=== PATIENT | male | born 1990 | race African-American/Black ===

== ENCOUNTER 2022-02-18 12:14 | Inpatient (IN) | payer SELFPAY ==
[2022-02-18] MEDS ORDERED: ACETAMINOPHEN 1000 MG/100 ML BAG IVPB ONE (12:34)
[2022-02-18] MEDS ORDERED: LACTATED RINGERS SOLUTION 1000 ML INFUS.BAG IV ONE (12:34)
[2022-02-18] MEDS ORDERED: PANTOPRAZOLE SODIUM 40 MG VIAL IVPUSH ONE (12:36)
[2022-02-18] MEDS ORDERED: PANTOPRAZOLE SODIUM 40 MG/100 ML BAG IVPB ONE (12:40)
[2022-02-18] MEDS ORDERED: PANTOPRAZOLE SODIUM 40 MG VIAL ONE ×2 (12:40→12:45)
[2022-02-18] MEDS ORDERED: ACETAMINOPHEN INJECTION 100 ML IVPB ONE ×2 (12:40→12:45)
[2022-02-18] MEDS ORDERED: ONDANSETRON 4 MG/2 ML VIAL IVPUSH ONE (12:42)
[2022-02-18] MEDS ORDERED: ONDANSETRON 4 MG/2 ML VIAL ONE (12:48)
[2022-02-18] MEDS ORDERED: LORazepam 2 MG/ML SDV VIAL IVPUSH ONE (13:02)
[2022-02-18 13:27] LABS: BASO % 0.8 % (0-2.0); EOS % 3.1 % (0-4.5); HEMATOCRIT 35.8 % (35.4-49); HEMOGLOBIN 11.5 GM/dL (11.7-16.9); LYMPH % 20.4 % (8-40); MCHC 32.1 g/dl (32.0-35.9); MEAN PLT VOLUME 8.8 fl (7.5-11.1); NEUT % 70.7 % (42.8-82.8); PLATELET COUNT 245 10^3/uL (134-434); RBC 4.78 M/mm3 (4.00-5.60); RDW 20.6 % (11.9-15.9); WHITE BLOOD COUNT 7.2 K/mm3 (4.0-10.0)
[2022-02-18 13:38] LABS: INR 1.11 (0.83-1.09); PROTHROMBIN TIME (PATIENT) 12.8 SEC (9.7-13.0)
[2022-02-18 13:41] LABS: ACTIVATED PTT 30.2 SECONDS (25.2-36.5)
[2022-02-18 13:51] LABS: BLOOD UREA NITROGEN 10.4 mg/dL (7-18); CALCIUM 9.1 mg/dL (8.5-10.1)
[2022-02-18 13:54] LABS: CREATININE 0.9 mg/dL (0.55-1.3)
[2022-02-18 13:56] LABS: BILIRUBIN,TOTAL 0.4 mg/dL (0.2-1); TOT PROT 7.9 g/dl (6.4-8.2)
[2022-02-18 14:45] LABS: ANISOCYTOSIS 3+; MACROCYTOSIS 0; TARGET CELLS 2+
[2022-02-18] MEDS ORDERED: morphine CARPU-JECT 2 MG/1 ML DISP.SYRIN IVPUSH ONE (15:12)
[2022-02-18] MEDS: PANTOPRAZOLE SODIUM 40 MG VIAL IVPUSH SCH (21:44)
[2022-02-18 22:39] VITALS: BMI 25.4
[2022-02-19] MEDS: morphine SULFATE 4 MG/ML VIAL IVPUSH PRN ×2 (01:18→21:30)
[2022-02-19 09:40] LABS: BASO % 0.7 % (0-2.0); EOS % 7.2 % (0-4.5); HEMATOCRIT 34.7 % (35.4-49); HEMOGLOBIN 11.2 GM/dL (11.7-16.9); LYMPH % 33.9 % (8-40); MCH 24.1 pg (25.7-33.7); MCHC 32.3 g/dl (32.0-35.9); MEAN CELL VOLUME 74.7 fl (80-96); MEAN PLT VOLUME 8.5 fl (7.5-11.1); MONO % 3.4 % (3.8-10.2); NEUT % 54.8 % (42.8-82.8); PLATELET COUNT 210 10^3/uL (134-434); RBC 4.65 M/mm3 (4.00-5.60); WHITE BLOOD COUNT 4.5 K/mm3 (4.0-10.0)
[2022-02-19 09:59] LABS: ALBUMIN 3.7 g/dl (3.4-5.0); BLOOD UREA NITROGEN 11.7 mg/dL (7-18); CALCIUM 8.8 mg/dL (8.5-10.1); MAGNESIUM 2.2 mg/dL (1.8-2.4)
[2022-02-19 10:00] LABS: IRON SERUM 108 ug/dL (50-175)
[2022-02-19 10:01] LABS: TOTAL IRON BINDING CAPACITY 403 ug/dL (250-450)
[2022-02-19 10:02] LABS: CREATININE 1.1 mg/dL (0.55-1.3); PHOSPHOROUS 3.1 mg/dL (2.5-4.9)
[2022-02-19 10:03] LABS: BILIRUBIN,TOTAL 0.9 mg/dL (0.2-1)
[2022-02-19 10:04] LABS: TOT PROT 7.2 g/dl (6.4-8.2)
[2022-02-19] MEDS: PANTOPRAZOLE SODIUM 40 MG VIAL IVPUSH SCH (10:15)
[2022-02-19] MEDS: ACETAMINOPHEN 1000 MG/100 ML BAG IVPB PRN (10:15)
[2022-02-19] MEDS ORDERED: PEG 3350/NA SULF BICARB CL/KCL 4000 ML SOLN.RECON PO ONE ×2 (14:00→20:00)
[2022-02-19] MEDS ORDERED: LORazepam 1 MG TABLET PO ONE (21:00)
[2022-02-20] MEDS: ACETAMINOPHEN 1000 MG/100 ML BAG IVPB PRN (01:01)
[2022-02-20] MEDS: PANTOPRAZOLE SODIUM 40 MG VIAL IVPUSH SCH (09:26)
[2022-02-20 11:00] LABS: BASO % 1.2 % (0-2.0); EOS % 9.5 % (0-4.5); HEMOGLOBIN 11.5 GM/dL (11.7-16.9); LYMPH % 34.5 % (8-40); MEAN CELL VOLUME 75.1 fl (80-96); MEAN PLT VOLUME 8.7 fl (7.5-11.1); MONO % 8.3 % (3.8-10.2); NEUT % 46.5 % (42.8-82.8); PLATELET COUNT 218 10^3/uL (134-434); RDW 21.1 % (11.9-15.9); WHITE BLOOD COUNT 3.8 K/mm3 (4.0-10.0)
[2022-02-20 11:07] LABS: INR 1.06 (0.83-1.09); PROTHROMBIN TIME (PATIENT) 12.2 SEC (9.7-13.0)
[2022-02-20 11:27] LABS: CALCIUM 9.4 mg/dL (8.5-10.1)
[2022-02-20 11:28] LABS: ALBUMIN 3.8 g/dl (3.4-5.0); BLOOD UREA NITROGEN 8.4 mg/dL (7-18); MAGNESIUM 2.4 mg/dL (1.8-2.4)
[2022-02-20 11:33] LABS: BILIRUBIN,TOTAL 0.9 mg/dL (0.2-1); TOT PROT 7.2 g/dl (6.4-8.2)
[2022-02-20] MEDS ORDERED: IRON SUCROSE INJECTION 200 MG in SODIUM CHLORIDE 90 ML IVPB ONE (16:00)
[2022-02-20] MEDS: morphine SULFATE 4 MG/ML VIAL IVPUSH PRN (16:48)
[2022-02-20] MEDS: OLANZapine 5 MG TABLET PO SCH (21:16)
[2022-02-20] MEDS: ACETAMINOPHEN 325 MG TABLET (FP) PO PRN (21:16)
[2022-02-21] MEDS: PANTOPRAZOLE SODIUM 40 MG VIAL IVPUSH SCH (09:41)
[2022-02-21 10:12] LABS: BASO % 0.7 % (0-2.0); EOS % 9.4 % (0-4.5); HEMOGLOBIN 11.5 GM/dL (11.7-16.9); LYMPH % 30.1 % (8-40); MEAN CELL VOLUME 75.1 fl (80-96); MONO % 6.5 % (3.8-10.2); NEUT % 53.3 % (42.8-82.8); PLATELET COUNT 224 10^3/uL (134-434); RDW 21.5 % (11.9-15.9); WHITE BLOOD COUNT 4.2 K/mm3 (4.0-10.0)
[2022-02-21 10:30] LABS: CALCIUM 8.7 mg/dL (8.5-10.1)
[2022-02-21 10:31] LABS: ALBUMIN 3.7 g/dl (3.4-5.0); BLOOD UREA NITROGEN 12.6 mg/dL (7-18); MAGNESIUM 2.2 mg/dL (1.8-2.4)
[2022-02-21 10:34] LABS: CREATININE 0.9 mg/dL (0.55-1.3)
[2022-02-21 10:36] LABS: BILIRUBIN,TOTAL 0.5 mg/dL (0.2-1); TOT PROT 7.3 g/dl (6.4-8.2)
[2022-02-21] MEDS ORDERED: LIDOCAINE VISCOUS 2% ORAL/TOP 15 ML UNIT-DOSE CUP ONE (12:27)
[2022-02-21] MEDS ORDERED: LIDOCAINE VISCOUS 2% ORAL/TOP 15 ML UNIT-DOSE CUP PO ONE (12:38)
[2022-02-21] MEDS ORDERED: MIDAZOLAM HCL 2 MG/2 ML SINGLE DOSE VIAL ONE (13:02)
[2022-02-21] MEDS ORDERED: MAG HYDROX/AL HYDROX/SIMETH 30 ML UNIT-DOSE CUP PO PRN (13:06)
[2022-02-21] MEDS ORDERED: LORazepam 2 MG/ML SDV VIAL IVPUSH ONE ×2 (13:58→14:10)
[2022-02-21] MEDS ORDERED: SODIUM CHLORIDE 500 ML IV STA (14:00)
[2022-02-21] MEDS: morphine SULFATE 4 MG/ML VIAL IVPUSH PRN ×2 (14:24→19:27)
[2022-02-21] MEDS ORDERED: ONDANSETRON 4 MG/2 ML VIAL IVPUSH ONE (14:35)
[2022-02-21 14:44] VITALS: RESP 18
[2022-02-21 16:17] LABS: BASO % 0.6 % (0-2.0); EOS % 7.2 % (0-4.5); HEMATOCRIT 36.7 % (35.4-49); HEMOGLOBIN 11.6 GM/dL (11.7-16.9); LYMPH % 25.8 % (8-40); MCH 24.1 pg (25.7-33.7); MCHC 31.6 g/dl (32.0-35.9); MEAN CELL VOLUME 76.2 fl (80-96); MEAN PLT VOLUME 8.5 fl (7.5-11.1); MONO % 5.8 % (3.8-10.2); NEUT % 60.6 % (42.8-82.8); PLATELET COUNT 198 10^3/uL (134-434); RBC 4.82 M/mm3 (4.00-5.60); RDW 21.3 % (11.9-15.9); WHITE BLOOD COUNT 5.7 K/mm3 (4.0-10.0)
[2022-02-21 16:26] LABS: INR 1.09 (0.83-1.09); PROTHROMBIN TIME (PATIENT) 12.6 SEC (9.7-13.0)
[2022-02-21 16:39] LABS: CALCIUM 8.8 mg/dL (8.5-10.1)
[2022-02-21 16:40] LABS: ALBUMIN 3.7 g/dl (3.4-5.0); BLOOD UREA NITROGEN 10.8 mg/dL (7-18); MAGNESIUM 2.1 mg/dL (1.8-2.4)
[2022-02-21 16:44] LABS: TOT PROT 7.3 g/dl (6.4-8.2)
[2022-02-21 16:45] LABS: BILIRUBIN,TOTAL 0.4 mg/dL (0.2-1)
[2022-02-21 17:42] LABS: ANISOCYTOSIS 2+; MACROCYTOSIS 1+; OVALOCYTE 1+; PLATELET ESTIMATE NORMAL
[2022-02-21] MEDS: ACETAMINOPHEN 325 MG TABLET (FP) PO PRN (18:20)
[2022-02-21] MEDS: OLANZapine 5 MG TABLET PO SCH (22:59)
[2022-02-22] MEDS: morphine SULFATE 4 MG/ML VIAL IVPUSH PRN ×2 (01:08→09:03)
[2022-02-22 09:44] VITALS: BP 108/58; PULSE 84; TEMP 98.2
[2022-02-22] MEDS ORDERED: PANTOPRAZOLE 40 MG TABLET PO SCH (10:00)
[2022-02-22 21:07] LABS: GLIADIN ANTIBODY IGA 7 units (0-19); GLIADIN ANTIBODY IGG 1 units (0-19); TRANSGLUTAMINASE IGG < 2 U/mL (0-5)
== END 2022-02-22 12:53 | disposition home or self-care (01) | DRG 241 ==
LOC: JER 12:14 → JERBED 15:42 → J6S 20:28
PROVIDERS: ADMIT Internal Medicine; ATTEND Nurse Practitioner Acute Care
PROC: 0DBH8ZX Excision of Cecum, Via Natural or Artificial Opening Endoscopic, Diagnostic (ICD-10-PCS; 2022-02-20)
PROC: 0DBN8ZX Excision of Sigmoid Colon, Via Natural or Artificial Opening Endoscopic, Diagnostic (ICD-10-PCS; 2022-02-20)
PROC: 0DBB8ZX Excision of Ileum, Via Natural or Artificial Opening Endoscopic, Diagnostic (ICD-10-PCS; 2022-02-20)
PROC: 0DBP8ZX Excision of Rectum, Via Natural or Artificial Opening Endoscopic, Diagnostic (ICD-10-PCS; principal; 2022-02-20 12:00)
PROC: 0DB98ZX Excision of Duodenum, Via Natural or Artificial Opening Endoscopic, Diagnostic (ICD-10-PCS; 2022-02-21)
PROC: 0DB68ZX Excision of Stomach, Via Natural or Artificial Opening Endoscopic, Diagnostic (ICD-10-PCS; 2022-02-21)
DX: K29.61 Other gastritis with bleeding (principal); R11.2 Nausea with vomiting, unspecified; F41.9 Anxiety disorder, unspecified; F20.89 Other schizophrenia; K64.8 Other hemorrhoids; F31.9 Bipolar disorder, unspecified; D12.8 Benign neoplasm of rectum; F29 Unspecified psychosis not due to a substance or known physiological condition; K62.5 Hemorrhage of anus and rectum; D50.9 Iron deficiency anemia, unspecified; F17.210 Nicotine dependence, cigarettes, uncomplicated; K52.9 Noninfective gastroenteritis and colitis, unspecified; R53.1 Weakness; Z31.9 Encounter for procreative management, unspecified; Z87.11 Personal history of peptic ulcer disease; Z59.00 Homelessness unspecified
CPT/HCPCS: 36415; 74176-TC; 74177-TC; 80053; 82272; 82728; 82784; 83516; 83540; 83550; 83605; 83690; 83735; 84100; 84443; 85025; 85045; 85610; 85651; 85730; 86140; 86850; 86900; 86901; 88305-TC; 93005; 93010; 99285-25; C9803-CS; J1756; U0003; U0005

== ENCOUNTER 2022-11-22 10:17 | Observation (INO) | payer OTHER ==
[2022-11-22] MEDS ORDERED: LACTATED RINGERS SOLUTION 1,000 ML IV STA ×2 (10:29→11:42)
[2022-11-22] MEDS ORDERED: ONDANSETRON 4 MG/2 ML VIAL IVPUSH ONE (10:30)
[2022-11-22] MEDS ORDERED: PANTOPRAZOLE SODIUM 40 MG VIAL IVPUSH ONE (10:35)
[2022-11-22] MEDS ORDERED: ACETAMINOPHEN 1000 MG/100 ML BAG IVPB ONE (10:35)
[2022-11-22] MEDS ORDERED: ACETAMINOPHEN INJECTION 100 ML IVPB ONE (10:38)
[2022-11-22] MEDS ORDERED: ONDANSETRON 4 MG/2 ML VIAL ONE (10:39)
[2022-11-22] MEDS ORDERED: PANTOPRAZOLE SODIUM 40 MG VIAL ONE (10:39)
[2022-11-22 11:08] LABS: PROTHROMBIN TIME (PATIENT) 11.6 SEC (9.7-13.0)
[2022-11-22 11:10] LABS: ACTIVATED PTT 30.5 SECONDS (25.2-36.5)
[2022-11-22 11:20] LABS: BASO % 0.7 % (0-2.0); EOS % 4.6 % (0-4.5); HEMATOCRIT 38.5 % (35.4-49); HEMOGLOBIN 13.3 GM/dL (11.7-16.9); LYMPH % 25.5 % (8-40); MCH 29.8 pg (25.7-33.7); MCHC 34.6 g/dl (32.0-35.9); MEAN CELL VOLUME 86.1 fl (80-96); MEAN PLT VOLUME 8.8 fl (7.5-11.1); MONO % 5.1 % (3.8-10.2); NEUT % 64.1 % (42.8-82.8); PLATELET COUNT 190 10^3/uL (134-434); RBC 4.47 M/mm3 (4.00-5.60); RDW 17.1 % (11.9-15.9); WHITE BLOOD COUNT 5.9 K/mm3 (4.0-10.0)
[2022-11-22 11:22] LABS: LACTIC ACID 2.4 mmol/L (0.4-2.0)
[2022-11-22 11:30] LABS: POTASSIUM 4.2 mmol/L (3.5-5.1)
[2022-11-22 11:33] LABS: BLOOD UREA NITROGEN 13.8 mg/dL (7-18); CALCIUM 9.5 mg/dL (8.5-10.1)
[2022-11-22 11:37] LABS: TOT PROT 7.6 g/dl (6.4-8.2)
[2022-11-22 11:38] LABS: BILIRUBIN,TOTAL 0.4 mg/dL (0.2-1)
[2022-11-22] MEDS ORDERED: METOCLOPRAMIDE HCL INJECTION 10 MG/2 ML VIAL IVPUSH ONE (11:42)
[2022-11-22] MEDS ORDERED: METOCLOPRAMIDE HCL INJECTION 10 MG/2 ML VIAL ONE (11:58)
[2022-11-22] MEDS ORDERED: morphine CARPU-JECT 4 MG/1 ML DISP.SYRIN IVPUSH ONE (12:46)
[2022-11-22] MEDS ORDERED: morphine SULFATE 4 MG/ML VIAL ONE (12:56)
[2022-11-22] MEDS ORDERED: HALOPERIDOL LACTATE 5 MG/ML IM ONE ×2 (13:35)
[2022-11-22 13:56] LABS: LACTIC ACID 3.2 mmol/L (0.4-2.0)
[2022-11-22 14:08] LABS: URINE APPEARANCE CLEAR; URINE BILIRUBIN NEGATIVE (NEGATIVE); URINE COLOR YELLOW; URINE GLUCOSE (UA) NEGATIVE (NEGATIVE); URINE KETONE NEGATIVE (NEGATIVE); URINE LEUK ESTERASE NEGATIVE (NEGATIVE); URINE NITRITE NEGATIVE (NEGATIVE); URINE PROTEIN NEGATIVE (NEGATIVE); URINE UROBILINOGEN 0.2 mg/dL (0.2-1.0)
[2022-11-22] MEDS ORDERED: ONDANSETRON 4 MG/2 ML VIAL IVPUSH PRN (16:33)
[2022-11-22] MEDS ORDERED: TRIMETHOBENZAMIDE HCL 200MG/2ML INJ IM ONE ×2 (16:39→16:58)
[2022-11-22] MEDS ORDERED: MAG HYDROX/AL HYDROX/SIMETH 30 ML UNIT-DOSE CUP PO PRN (16:51)
[2022-11-22] MEDS: LACTATED RINGERS SOLUTION 1,000 ML IV SCH (17:10)
[2022-11-22 18:02] VITALS: BMI 29.0
[2022-11-22] MEDS: PHENYLEPHRINE HCL/COCOA BUTTER 1 EACH SUPP.RECT RC SCH ×2 (22:42→22:45)
[2022-11-22] MEDS: PANTOPRAZOLE SODIUM 40 MG VIAL IVPUSH SCH (22:42)
[2022-11-23] MEDS: LACTATED RINGERS SOLUTION 1,000 ML IV SCH (03:57)
[2022-11-23] MEDS ORDERED: ACETAMINOPHEN 1000 MG/100 ML BAG IVPB ONE (05:27)
[2022-11-23 07:41] LABS: BASO % 0.6 % (0-2.0); EOS % 4.6 % (0-4.5); HEMATOCRIT 35.5 % (35.4-49); HEMOGLOBIN 12.4 GM/dL (11.7-16.9); LYMPH % 33.7 % (8-40); MCH 29.9 pg (25.7-33.7); MEAN CELL VOLUME 85.5 fl (80-96); MEAN PLT VOLUME 8.7 fl (7.5-11.1); MONO % 8.4 % (3.8-10.2); NEUT % 52.7 % (42.8-82.8); PLATELET COUNT 157 10^3/uL (134-434); RBC 4.16 M/mm3 (4.00-5.60); RDW 17.4 % (11.9-15.9); WHITE BLOOD COUNT 4.3 K/mm3 (4.0-10.0)
[2022-11-23 08:00] LABS: POTASSIUM 3.8 mmol/L (3.5-5.1)
[2022-11-23 08:08] LABS: ALBUMIN 3.3 g/dl (3.4-5.0); PHOSPHOROUS 3.6 mg/dL (2.5-4.9)
[2022-11-23 08:09] LABS: BLOOD UREA NITROGEN 9.8 mg/dL (7-18); CREATININE 1.1 mg/dL (0.55-1.3)
[2022-11-23 08:10] LABS: TOT PROT 6.5 g/dl (6.4-8.2)
[2022-11-23 08:13] LABS: CALCIUM 8.7 mg/dL (8.5-10.1)
[2022-11-23 08:14] LABS: MAGNESIUM 1.6 mg/dL (1.8-2.4)
[2022-11-23 08:20] LABS: BILIRUBIN,TOTAL 0.9 mg/dL (0.2-1)
[2022-11-23] MEDS ORDERED: MAGNESIUM SULF 50% (8.12 MEQ/2 ML-1 GM VIAL) IVPB ONE (09:30)
[2022-11-23] MEDS ORDERED: ENOXAPARIN NA (PORCINE) 40 MG/0.4 ML DISP.SYRIN SQ SCH (10:00)
[2022-11-23] MEDS: PANTOPRAZOLE SODIUM 40 MG VIAL IVPUSH SCH (10:08)
[2022-11-23] MEDS: PHENYLEPHRINE HCL/COCOA BUTTER 1 EACH SUPP.RECT RC SCH (10:09)
[2022-11-23 10:45] VITALS: RESP 20
[2022-11-23 12:18] VITALS: BP 141/87; PULSE 58; TEMP 98.4
[2022-11-23 13:40] LABS: COCAINE, UR NEGATIVE (NEGATIVE); OPIATES, URI NEGATIVE (NEGATIVE); URINE BARBITURATES NEGATIVE (NEGATIVE)
[2022-11-23 13:41] LABS: METHADONE, UR NEGATIVE (NEGATIVE); PHENCYCLIDINE,URINE NEGATIVE (NEGATIVE)
[2022-11-23 13:47] LABS: URINE AMPHETAMINES NEGATIVE (NEGATIVE); URINE BENZODIAZEPINES NEGATIVE (NEGATIVE)
[2022-11-24] MEDS ORDERED: PANTOPRAZOLE 40 MG TABLET PO SCH (10:00)
== END 2022-11-23 14:21 | disposition home or self-care (01) ==
LOC: JER 10:17 → INTOOBSV 15:46 → JERBED 15:46 → UNDOADMOB 15:46 → JERBED 16:27 → J7W 17:24
PROVIDERS: ADMIT Internal Medicine; ATTEND Internal Medicine
PROC: 3E033NZ Introduction of Analgesics, Hypnotics, Sedatives into Peripheral Vein, Percutaneous Approach (ICD-10-PCS; principal; 2022-11-22)
PROC: 3E033GC Introduction of Other Therapeutic Substance into Peripheral Vein, Percutaneous Approach (ICD-10-PCS; 2022-11-22)
PROC: 3E0337Z Introduction of Electrolytic and Water Balance Substance into Peripheral Vein, Percutaneous Approach (ICD-10-PCS; 2022-11-22)
PROC: 3E023GC Introduction of Other Therapeutic Substance into Muscle, Percutaneous Approach (ICD-10-PCS; 2022-11-22)
DX: R10.33 Periumbilical pain (principal); F12.10 Cannabis abuse, uncomplicated; E86.0 Dehydration; R10.13 Epigastric pain; R11.10 Vomiting, unspecified; K64.9 Unspecified hemorrhoids; F20.9 Schizophrenia, unspecified; Z87.11 Personal history of peptic ulcer disease; R79.89 Other specified abnormal findings of blood chemistry; F41.9 Anxiety disorder, unspecified
CPT/HCPCS: 36415; 74174-TC; 80053; 80307; 81003; 82272; 83605; 83690; 83735; 84100; 84484; 85025; 85610; 85730; 86850; 86900; 86901; 87086; 93005; 93010; 96361; 96372; 96374; 96375; 96376; 99285-25; C9803-CS; G0378; Q9967; U0003; U0005

== ENCOUNTER 2023-01-30 04:09 | Inpatient (IN) | payer OTHER ==
[2023-01-30 04:22] VITALS: BMI 29.0
[2023-01-30] MEDS ORDERED: FAMOTIDINE 20 MG/50 ML IVPB 20 MG/50 ML MG IVPB ONE ×2 (05:52→06:03)
[2023-01-30] MEDS ORDERED: ACETAMINOPHEN 1000 MG/100 ML BAG IVPB ONE (05:52)
[2023-01-30] MEDS ORDERED: MAG HYDROX/AL HYDROX/SIMETH 30 ML UNIT-DOSE CUP PO ONE (05:52)
[2023-01-30] MEDS ORDERED: SODIUM CHLORIDE 0.9% 500 ML INFUS.BAG IV ONE (05:52)
[2023-01-30] MEDS ORDERED: morphine CARPU-JECT 4 MG/1 ML DISP.SYRIN IVPUSH ONE (05:57)
[2023-01-30] MEDS ORDERED: morphine SULFATE 4 MG/ML VIAL ONE ×2 (06:02→09:06)
[2023-01-30] MEDS ORDERED: ACETAMINOPHEN INJECTION 100 ML IVPB ONE (06:03)
[2023-01-30] MEDS ORDERED: MAG HYDROX/AL HYDROX/SIMETH 30 ML UNIT-DOSE CUP ONE (06:03)
[2023-01-30] MEDS ORDERED: FAMOTIDINE 10 MG/ML VIAL IVPB ONE (06:03)
[2023-01-30 06:34] LABS: EOS % 3.1 % (0-4.5); HEMATOCRIT 40.6 % (35.4-49); HEMOGLOBIN 13.8 GM/dL (11.7-16.9); LYMPH % 23.5 % (8-40); MCH 30.4 pg (25.7-33.7); MEAN CELL VOLUME 89.2 fl (80-96); MEAN PLT VOLUME 9.1 fl (7.5-11.1); MONO % 5.2 % (3.8-10.2); NEUT % 67.2 % (42.8-82.8); PLATELET COUNT 221 10^3/uL (134-434); RBC 4.55 M/mm3 (4.00-5.60); RDW 15.9 % (11.9-15.9); WHITE BLOOD COUNT 6.9 K/mm3 (4.0-10.0)
[2023-01-30 06:54] LABS: POTASSIUM 4.5 mmol/L (3.5-5.1)
[2023-01-30 06:57] LABS: ALBUMIN 4.3 g/dl (3.4-5.0); CALCIUM 10.2 mg/dL (8.5-10.1)
[2023-01-30 06:58] LABS: BLOOD UREA NITROGEN 11.4 mg/dL (7-18); MAGNESIUM 1.9 mg/dL (1.8-2.4)
[2023-01-30 07:00] LABS: CREATININE 1.1 mg/dL (0.55-1.3)
[2023-01-30 07:02] LABS: BILIRUBIN,TOTAL 1.2 mg/dL (0.2-1)
[2023-01-30 07:10] LABS: PH,URINE 7.5 (5.0-8.0); URINE APPEARANCE CLEAR; URINE BILIRUBIN NEGATIVE (NEGATIVE); URINE COLOR YELLOW; URINE GLUCOSE (UA) NEGATIVE (NEGATIVE); URINE KETONE 1+ (NEGATIVE); URINE LEUK ESTERASE NEGATIVE (NEGATIVE); URINE NITRITE NEGATIVE (NEGATIVE); URINE PROTEIN NEGATIVE (NEGATIVE); URINE UROBILINOGEN 0.2 mg/dL (0.2-1.0)
[2023-01-30 07:11] LABS: INR 1.07 (0.83-1.09); PROTHROMBIN TIME (PATIENT) 12.4 SEC (9.7-13.0)
[2023-01-30 07:13] LABS: ACTIVATED PTT 31.1 SECONDS (25.2-36.5)
[2023-01-30] MEDS ORDERED: HALOPERIDOL LACTATE 5 MG/ML IM ONE ×2 (07:38→07:46)
[2023-01-30] MEDS ORDERED: morphine SULFATE 4 MG/ML VIAL IVPUSH ONE (08:49)
[2023-01-30] MEDS ORDERED: CEFTRIAXONE 1 GM in DEXTROSE 5%-WATER - 100 ML IVPB ONE (08:51)
[2023-01-30] MEDS ORDERED: ACETAMINOPHEN 1000 MG/100 ML BAG IVPB PRN (09:09)
[2023-01-30] MEDS ORDERED: CEFTRIAXONE 1 GM/50 ML BAG ONE (09:43)
[2023-01-30] MEDS ORDERED: morphine SULFATE 4 MG/ML VIAL IVPUSH PRN (09:48)
[2023-01-30] MEDS ORDERED: BUPIVACAINE HCL/PF 0.5% (5MG/ML) 10 ML VIAL ONE (10:16)
[2023-01-30] MEDS ORDERED: ONDANSETRON 4 MG/2 ML VIAL IVPUSH PRN ×2 (10:18→12:26)
[2023-01-30] MEDS ORDERED: PROMETHAZINE HCL 25 MG/1 ML VIAL IVPB PRN ×2 (10:18→12:26)
[2023-01-30] MEDS ORDERED: oxyCODONE HCL 5 MG TABLET PO PRN ×2 (10:18)
[2023-01-30] MEDS ORDERED: PROPOFOL 20 ML ONE ×2 (10:25→11:53)
[2023-01-30] MEDS ORDERED: MIDAZOLAM HCL 2 MG/2 ML SINGLE DOSE VIAL ONE (10:25)
[2023-01-30] MEDS ORDERED: LIDOCAINE HCL/PF 2% SDV 5ML VIAL ONE (10:26)
[2023-01-30] MEDS ORDERED: DEXAMETHASONE SOD PHOSPHATE 4 MG/1 ML VIAL ONE (10:26)
[2023-01-30] MEDS ORDERED: ROCURONIUM BROMIDE 50 MG/5 ML SYRINGE ONE (10:27)
[2023-01-30] MEDS ORDERED: KETOROLAC TROMETHAMINE 30 MG/1 ML VIAL ONE (10:28)
[2023-01-30] MEDS ORDERED: LACTATED RINGERS SOLUTION 1,000 ML IV SCH (10:30)
[2023-01-30] MEDS ORDERED: SEVOFLURANE 250 ML BTL ONE (10:59)
[2023-01-30] MEDS ORDERED: POTASSIUM CHLORIDE 30 MEQ in SODIUM CHLORIDE 1,000 ML IV SCH (11:00)
[2023-01-30] MEDS ORDERED: BUPIVACAINE HCL/PF 0.5% (5MG/ML) 10 ML VIAL IJ ONE (11:08)
[2023-01-30] MEDS ORDERED: SUGAMMADEX SODIUM 200 MG/2 ML VIAL ONE (11:44)
[2023-01-30] MEDS: oxyCODONE HCL 5 MG TABLET PO PRN (18:12)
[2023-01-30] MEDS: ACETAMINOPHEN 1000 MG/100 ML BAG IVPB PRN (20:58)
[2023-01-31] MEDS: oxyCODONE HCL 5 MG TABLET PO PRN ×2 (01:39→13:49)
[2023-01-31] MEDS: ACETAMINOPHEN 1000 MG/100 ML BAG IVPB PRN ×2 (06:08→09:38)
[2023-01-31 09:09] LABS: BASO % 0.5 % (0-2.0); EOS % 1.2 % (0-4.5); HEMOGLOBIN 12.7 GM/dL (11.7-16.9); LYMPH % 26.5 % (8-40); MCH 30.2 pg (25.7-33.7); MCHC 33.4 g/dl (32.0-35.9); MEAN CELL VOLUME 90.4 fl (80-96); MEAN PLT VOLUME 9.1 fl (7.5-11.1); MONO % 6.8 % (3.8-10.2); PLATELET COUNT 191 10^3/uL (134-434); RDW 15.9 % (11.9-15.9); WHITE BLOOD COUNT 7.4 K/mm3 (4.0-10.0)
[2023-01-31 09:21] LABS: POTASSIUM 3.3 mmol/L (3.5-5.1)
[2023-01-31 09:28] LABS: BLOOD UREA NITROGEN 7.7 mg/dL (7-18); CALCIUM 9.2 mg/dL (8.5-10.1)
[2023-01-31 09:29] LABS: ALBUMIN 3.8 g/dl (3.4-5.0)
[2023-01-31 09:32] LABS: CREATININE 1.1 mg/dL (0.55-1.3)
[2023-01-31 09:33] LABS: BILIRUBIN,TOTAL 1.1 mg/dL (0.2-1); TOT PROT 6.9 g/dl (6.4-8.2)
[2023-01-31] MEDS ORDERED: ENOXAPARIN NA (PORCINE) 40 MG/0.4 ML DISP.SYRIN SQ SCH ×2 (10:00)
[2023-01-31] MEDS ORDERED: CEFAZOLIN 2 GM in DEXTROSE 5%-WATER - 50 ML IVPB SCH (10:00)
[2023-01-31] MEDS ORDERED: POTASSIUM CHLORIDE TABS 10 MEQ TABLET.ER (FP) PO ONE (12:32)
[2023-01-31 14:15] VITALS: BP 138/92; PULSE 77; RESP 20; TEMP 97.9
== END 2023-01-31 14:39 | disposition home or self-care (01) | DRG 225 ==
LOC: JER 04:09 → JERBED 09:06 → J8W 13:32
PROVIDERS: ADMIT Internal Medicine; ATTEND Internal Medicine
PROC: 0DTJ4ZZ Resection of Appendix, Percutaneous Endoscopic Approach (ICD-10-PCS; principal; 2023-01-30 10:00)
DX: K35.30 Acute appendicitis with localized peritonitis, without perforation or gangrene (principal); F20.9 Schizophrenia, unspecified; F41.9 Anxiety disorder, unspecified
CPT/HCPCS: 36415; 74176-TC; 80053; 81003; 82272; 83605; 83690; 83735; 85025; 85610; 85730; 86850; 86900; 86901; 93005; 93010; 94760; 99285-25

== ENCOUNTER 2023-06-08 12:12 | Emergency (ER) | payer OTHER ==
[2023-06-08] MEDS ORDERED: ONDANSETRON *ODT* 4 MG TABLET SL ONE (12:21)
[2023-06-08 13:09] VITALS: PULSE 86; TEMP 98.2; BMI 27.3
[2023-06-08] MEDS ORDERED: ONDANSETRON *ODT* 4 MG TABLET ONE (13:15)
[2023-06-08] MEDS ORDERED: MAG HYDROX/AL HYDROX/SIMETH 30 ML UNIT-DOSE CUP PO ONE (14:46)
[2023-06-08] MEDS ORDERED: MAG HYDROX/AL HYDROX/SIMETH 30 ML UNIT-DOSE CUP ONE (14:50)
[2023-06-08 16:18] VITALS: BP 145/80; RESP 75
== END 2023-06-08 16:11 | disposition home or self-care (01) ==
LOC: JER 12:12
DX: R11.2 Nausea with vomiting, unspecified (principal); R10.9 Unspecified abdominal pain; F12.288 Cannabis dependence with other cannabis-induced disorder
CPT/HCPCS: 82962; 99283-25; Q0162